=== PATIENT | male | born 1975 | race African-American/Black ===

== ENCOUNTER 2018-04-13 16:55 | Emergency (ER) | payer OTHER ==
[~2018-04-13] VITALS: Ht 180.3 cm; Wt 122.5 kg
[~2018-04-13 16:55] MED LIST: NORVASC10 MG PO
[2018-04-13] MEDS ORDERED: DUTOPROL 100-11 EACH (17:35)
== END 2018-04-13 19:36 | disposition home or self-care (01) ==
LOC: ER → EDBD 16:55 → ER 17:27
DX: R60.0 Localized edema (principal)

== ENCOUNTER → 2019-03-14 | Emergency (ER) | payer OTHER ==
[~2019-03-14] VITALS: Ht 180.3 cm; Wt 136.1 kg
[~2019-03-14] MED LIST changes: +ASPIRIN325 MG; +DUTOPROL 100-11 EACH
== END | disposition home or self-care (01) ==
LOC: ER 16:59
DX: I87.2 Venous insufficiency (chronic) (peripheral) (principal)

== ENCOUNTER 2019-05-15 12:41 | Emergency (ER) | payer OTHER ==
[~2019-05-15] VITALS: Ht 154.9 cm; Wt 138.3 kg
[2019-05-15] MEDS ORDERED: XARELTO10 MG PO (13:37)
== END 2019-05-15 20:39 | disposition home or self-care (01) ==
LOC: ER 12:41
DX: R07.89 Other chest pain (principal)